=== PATIENT | male | born 1975 | race Caucasian/White ===

== ENCOUNTER 2019-05-04 18:15 | Emergency (ER) | payer OTHER ==
[~2019-05-04] VITALS: Ht 185.4 cm; Wt 145.1 kg
--- NOTE | 2019-05-04 18:34 | ER.PDOC ---
General Chief Complaint: Requesting Medical Care Stated Complaint: CP, SOB Time seen by MD: 19:00 Source: patient Exam Limitations: no limitations History of Present Illness Timing/Duration: 1 week Severity: moderate Activities at Onset: activity/exertion Prior Episodes/Possible Cause: occasional episodes Modifying Factors: improves with activity, improves with lying down, improves with rest Associated Symptoms: chest pain Prior symptoms/Treatment: Similar symptoms previous Past Medical History Medical History: congestive heart failure, diabetes, hypertension Reviewed Nursing Reviewed: Vital Signs, Abn. Noted Review of Systems All Other Systems: Reviewed and Negative Physical Exam HEENT: PERRL/EOMI, Normal ENT Inspection, TMs Normal, Pharynx Normal Neck: Non-Tender, Full Range of Motion, Supple, Normal Inspection Respiratory: chest non-tender, lungs clear, normal breath sounds, no respiratory distress, no accessory muscle use Cardiovascular: Normal Peripheral Pulses, Regular Rate, Rhythm, No Edema, No Gallop, No JVD, No Murmur Gastrointestinal: Normal Bowel Sounds, No Organomegaly, No Pulsatile Mass, Non Tender, Soft Extremities: Normal Range of Motion, Non-Tender, Normal Inspection, No Pedal Edema, No Calf Tenderness, Normal Capillary Refill Neurologic/Psychiatric: tortilla maker II-XII NML as Tested, No Motor/Sensory Deficits, Alert, Normal Mood/Affect, Oriented x 3 Skin: Normal Color, Warm/Dry Lymphatic: No Adenopathy Results/Orders Results/Orders Orders - SOO KAYE DO Creatine Kinase Mb (05/04/19 19:25) Vital Signs Date Time Temp Pulse Resp B/P (MAP) Pulse Ox O2 Delivery O2 Flow Rate FiO2 05/04/19 18:39 85 18 05/04/19 18:33 100.1 85 18 96 Room Air 05/04/19 18:33 100.1 85 18 Laboratory Tests Test 05/04/19 18:40 White Blood Count 11.3 10^3/uL (4.5-11.0) H Red Blood Count 4.53 10^6/uL (4.50-5.90) Hemoglobin 12.8 g/dL (13.9-16.3) L Hematocrit 39.7 % (37.0-53.0) Mean Corpuscular Volume 87.6 fL (78-100) Mean Corpuscular Hemoglobin 28.3 pg (26-34) Mean Corpuscular Hemoglobin Concent 32.2 g/dL (33-37) L Red Cell Distribution Width 15.2 % (11.5-14.5) H Platelet Count 144 10^3/uL (150-400) L Mean Platelet Volume 11.5 fL (7.8-11.0) H Neutrophils (%) (Auto) 76.9 % (41.0-85.0) Lymphocytes (%) (Auto) 11.1 % (24.0-44.0) L Monocytes (%) (Auto) 9.6 % (5.0-12.0) Neutrophils # (Auto) 8.7 10^3/uL (1.8-7.7) H Lymphocytes # (Auto) 1.3 10^3/uL (1.0-4.8) Monocytes # (Auto) 1.1 10^3/uL (0.3-0.8) H Absolute Immature Granulocyte (auto 0.14 10^3 u/L (0-2) Immature Granulocytes % 1.20 % (0.00-0.50) H Eosinophils % 0.9 % (0.0-5.0) Basophils % 0.3 % (0.0-0.2) H Basophils # 0.0 10^3/uL (0.0-0.1) Eosinophil Count 0.1 10^3/uL (0.0-0.2) Prothrombin Time 10.4 SEC (9.8-11.9) Prothrombin Time INR (Non-Therap) 1.0 PTT 26.1 SEC (24.67-30.72) D-Dimer 0.62 mg/L (0.19-0.49) *H Sodium Level 137 mmol/L (132-145) Potassium Level 4.4 mmol/L (3.6-5.2) Chloride Level 101.0 mmol/L (96-109) Carbon Dioxide Level 24.9 mmol/L (20.0-32) Anion Gap 15.5 Blood Urea Nitrogen 26 mg/dL (7-18) H Creatinine 1.30 mg/dL (0.59-1.40) Estimated GFR () 72.2 (>/=60) BUN/Creatinine Ratio 20.0 Glucose Level 246 mg/dL (70-110) H Calcium Level 8.8 mg/dL (8.4-10.5) Total Bilirubin 0.7 mg/dL (0.2-1.0) Aspartate Amino Transferase (AST) 24 U/L (0-35) Alanine Aminotransferase (ALT) 34 U/L (12-78) Alkaline Phosphatase 91 U/L (50-136) Total Creatine Kinase 348 U/L (39-308) H Creatine Kinase MB 2.5 ng/mL (0.5-3.6) Troponin I < 0.02 ng/mL (0.00-0.05) Pro-B-Type Natriuretic Peptide 316 pg/mL (0-125) H Total Protein 7.5 g/dL (6.4-8.2) Albumin 3.5 g/dL (3.4-5.0) Globulin 4.0 Helicobacter pylori Screen NEGATIVE (NEGATIVE) Progress Progress TO DR KAYE AT 1999 PATIENT HAS NO SYMPTOMS AND WANTS TO GO HOME, PE DONE- NOTED RED THROAT, HEART AND LUNGS CLEAR, RRR, NO M, NO S3,S4. DIFF DX IN DETAIL, ALL LABS DISCUSSED, D DIMER DISCUSSED, CTA CHEST AND REPEAT CARDIAC LABS DISCUSSED, PATIENT REFUSED AND WANTS TO GO HOME. POSS MISSED DX DISCUSSED, PATIENT DOES HAVE THE CAPACITY TO UNDERSTAND AND REFUSES FATHER WORK UP. Course Vitals & review Data Vital Sign - Last 24 Hours 05/04/19 05/04/19 05/04/19 18:33 18:33 18:39 Temp 100.1 100.1 Pulse 85 85 85 Resp 18 18 18 Pulse Ox 96 O2 Delivery Room Air Laboratory Tests Test 05/04/19 18:40 White Blood Count 11.3 10^3/uL Red Blood Count 4.53 10^6/uL Hemoglobin 12.8 g/dL Hematocrit 39.7 % Mean Corpuscular Volume 87.6 fL Mean Corpuscular Hemoglobin 28.3 pg Mean Corpuscular Hemoglobin Concent 32.2 g/dL Red Cell Distribution Width 15.2 % Platelet Count 144 10^3/uL Mean Platelet Volume 11.5 fL Neutrophils (%) (Auto) 76.9 % Lymphocytes (%) (Auto) 11.1 % Monocytes (%) (Auto) 9.6 % Neutrophils # (Auto) 8.7 10^3/uL Lymphocytes # (Auto) 1.3 10^3/uL Monocytes # (Auto) 1.1 10^3/uL Absolute Immature Granulocyte (auto 0.14 10^3 u/L Immature Granulocytes % 1.20 % Eosinophils % 0.9 % Basophils % 0.3 % Basophils # 0.0 10^3/uL Eosinophil Count 0.1 10^3/uL Prothrombin Time 10.4 SEC Prothrombin Time INR (Non-Therap) 1.0 Activated Partial Thromboplast Time 26.1 SEC D-Dimer 0.62 mg/L Sodium Level 137 mmol/L Potassium Level 4.4 mmol/L Chloride Level 101.0 mmol/L Carbon Dioxide Level 24.9 mmol/L Anion Gap 15.5 Blood Urea Nitrogen 26 mg/dL Creatinine 1.30 mg/dL Estimated GFR () 72.2 BUN/Creatinine Ratio 20.0 Glucose Level 246 mg/dL Calcium Level 8.8 mg/dL Total Bilirubin 0.7 mg/dL Aspartate Amino Transf (AST/SGOT) 24 U/L Alanine Aminotransferase (ALT/SGPT) 34 U/L Alkaline Phosphatase 91 U/L Total Creatine Kinase 348 U/L Creatine Kinase MB 2.5 ng/mL Troponin I < 0.02 ng/mL Pro-B-Type Natriuretic Peptide 316 pg/mL Total Protein 7.5 g/dL Albumin 3.5 g/dL Globulin 4.0 Helicobacter pylori Screen NEGATIVE Departure Time of Disposition: 19:56 Disposition: 01 HOME, SELF-CARE Impression: Primary Impression: Pharyngitis Additional Impressions: Chest pain SOB (shortness of breath) Condition: Against Medical Advice Patient Instructions: Chest Pain (Nonspecific), Viral and Bacterial Pharyngitis Additional Instructions: TO ED IF WORSE IN ANY WAY, FOLLOW UP WITH YOUR DR, DRINK WATER, RX PEN VK. Duration or Time Spent with Pa: 20 MIN Problem Qualifiers PANKAJ MUELLER MD May 04, 2019 18:34 SOO KAYE DO May 04, 2019 19:59
--- NOTE | 2019-05-04 18:45 | PCM.EKG ---
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
[2019-05-04 19:01] LABS: BASOPHIL % 0.3 % (0.0-0.2); EOSINOPHIL # 0.1 10^3/uL (0.0-0.2); EOSINOPHIL % 0.9 % (0.0-5.0); HEMOGLOBIN 12.8 g/dL (13.9-16.3); LYMPHOCYTES # 1.3 10^3/uL (1.0-4.8); LYMPHOCYTES % 11.1 % (24.0-44.0); MEAN CELL HGB 28.3 pg (26-34); MEAN CELL HGB CONCENTRATION 32.2 g/dL (33-37); MEAN CORP VOLUME 87.6 fL (78-100); MEAN PLATELET VOLUME 11.5 fL (7.8-11.0); MONOCYTES # 1.1 10^3/uL (0.3-0.8); MONOCYTES % 9.6 % (5.0-12.0); NEUTROPHIL # 8.7 10^3/uL (1.8-7.7); NEUTROPHILS % 76.9 % (41.0-85.0); RED CELL DISTRIBUTION WIDTH 15.2 % (11.5-14.5); WHITE BLOOD CELL 11.3 10^3/uL (4.5-11.0)
[2019-05-04 19:13] LABS: ALANINE AMINOTRANSFERASE(ML) 34 U/L (12-78); ALKALINE PHOSPHATASE 91 U/L (50-136); ASPARTATE AMINO TRANSFERASE 24 U/L (0-35); CALCIUM 8.8 mg/dL (8.4-10.5); CARBON DIOXIDE 24.9 mmol/L (20.0-32); GLUCOSE 246 mg/dL (70-110)
--- NOTE | 2019-05-04 19:16 | DIREP ---
PROCEDURE:CHEST 2 VIEWS COMPARISON:None. INDICATIONS:DYSPNEA FINDINGS: LUNGS/PLEURA:Coarse central interstitial markings. No consolidation or pleural effusion. VASCULATURE:Normal. Unremarkable pulmonary vasculature. CARDIAC:Normal. No cardiac silhouette abnormality or cardiomegaly. MEDIASTINUM:Normal. No visible mass or adenopathy. BONES:Normal. No fracture or visible bony lesion. OTHER:Negative. CONCLUSION:Coarse central interstitial markings. No consolidation or pleural effusion. Dictated by: Nicola Mao MD on 05/04/2019 at 07:14 PM
[2019-05-04 19:30] VITALS: BP 162/89
--- NOTE | 2019-05-04 19:31 | NUR ---
Critical Lab Value Fany from Lab calls back a critical D-Dimer of 0.62
[2019-05-04 20:00] VITALS: BP 168/76
--- NOTE | 2019-05-04 20:12 | NUR ---
IV IV DISCONTINUED WITH TIP INTACT. PRESSURE DRESSING APPLIED.
--- NOTE | 2019-05-04 20:14 | NUR ---
AMA PATIENT IS CHOOSING TO SIGN OUT AMA. DR KAYE AND RN HAVE SPOKEN WITH PATIENT REGARDING RISKS OF LEAVING AMA AND BENEFITS OF STAYING TO COMPLETE EVALUATION. PATIENT CONTINUES TO WISH TO LEAVE. AMA FORM SIGNED BY PATIENT AND DR KAYE AND PLACED ON PATIENT'S CHART. PATIENT STABLE AT TIME OF AMBULATING OUT OF ER.
[2019-05-04 20:23] VITALS: BP 168/76
== END 2019-05-04 20:14 | disposition home or self-care (01) ==
LOC: ER 18:15
DX: J02.9 Acute pharyngitis, unspecified (principal); R07.9 Chest pain, unspecified; R06.02 Shortness of breath; I11.0 Hypertensive heart disease with heart failure; I50.9 Heart failure, unspecified; E11.9 Type 2 diabetes mellitus without complications
CPT/HCPCS: 36415; 71046; 80053; 82550; 82553; 83880; 84484; 85025; 85379; 85610; 85730; 86677; 93005; 99285